=== PATIENT | female | born 1985 | race Hispanic/Latino ===

== ENCOUNTER 2019-07-08 10:35 | Emergency (ER) | payer OTHER, SELFPAY ==
[2019-07-08 10:45] VITALS: BP 134/94; PULSE 83; RESP 18; TEMP 36.6; O2SAT 99; BMI 26.4
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
[2019-07-08 12:56] VITALS: BP 128/72; PULSE 70; RESP 12; O2SAT 98
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
[2019-07-08] MEDS: ACETAMINOPHEN 325 MG TABLET 975 MG PO (13:00)
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
== END 2019-07-08 13:40 | disposition home or self-care (01) ==
PROVIDERS: Emergency Provider Nurse Practitioner
DX: S13.4XXA Sprain of ligaments of cervical spine, initial encounter (principal); V47.5XXA Car driver injured in collision with fixed or stationary object in traffic accident, initial encounter
CPT/HCPCS: 71101; 99282; 99283